=== PATIENT | female | born 1970 | race Two or more races ===

== ENCOUNTER → 2024-11-10 | Outpatient (CLI) | payer BC ==
--- NOTE | 2024-11-10 16:54 | US ---
EXAMINATION TYPE: US thyroid st tissue head/neck DATE OF EXAM: 11/10/2024 COMPARISON: US CLINICAL INDICATION: Female, 54 years old with history of R22.1 LOCALIZED SWELLING, MASS AND LUMP, NE CK; Pt states abnormal xray at outside facility TECHNIQUE: Grayscale and color Doppler imaging of the thyroid gland. FINDINGS: GLAND SIZE: Right Lobe: 6.6 x 2.6 x 2.4 cm Overall Parenchyma: heterogeneous Left Lobe: 7.7 x 2.6 x 2.6 cm Overall Parenchyma: heterogeneous Isthmus Thickness: 0.2 cm NODULES RIGHT: # of nodules measured on right: 1 1. 4.1 X 2.1 x 2.3 cm, lower, solid or almost completely solid, isoechoic nodule, which is wider th an tall, with ill-defined margins, without echogenic foci. TR3 Prior size: No prior Multiple sub-centimeter nodules scattered throughout LEFT: # of nodules measured on left: 2 1. 4.5 X 2.9 x 4.5 cm, lower, solid or almost completely solid, isoechoic nodule, which is wider th an tall, with ill-defined margins, without echogenic foci. Difficult to visualize- extending past c lavicle. TR3 Prior size: No prior 2. 2.9 X 1.6 x 2.6 cm, mid, solid or almost completely solid, isoechoic nodule, which is wider raoul n tall, with smooth margins, without echogenic foci. TR3 Prior size: No prior ISTHMUS: # of nodules measured in the isthmus: 1 1. 1.2 X 1.0 x 0.9 cm solid or almost completely solid, hypoechoic nodule, which is wider than tall , with smooth margins, without echogenic foci. TR3 Prior size: No prior Bilateral neck scanned, no evidence of lymphadenopathy. Bilateral thyroid enlarged, lower pole extending past clavicle making it difficult to visualize. Multiple nodules bilaterally with largest measured above. IMPRESSION: As above. Consider imaging guided sampling of the largest bilateral nodules to rule out malignancy. 2017 ACR TI-RADS LEVEL: TI-RADS 3 - Mildly Suspicious: Follow if > 1.5 cm, FNA if > 2.5 cm *Highest TI-RADS level nodule reported [email or web address] [facility], , 11/10/2024 4:52 PM
[2024-11-10 21:36] LABS: T4, Free (Free Thyroxine) 1.18 ng/dL (0.80-1.80)
== END | disposition home or self-care (01) ==
LOC: RADUSWWP 15:18
PROVIDERS: ATTEND Otolaryngology
DX: E04.2 Nontoxic multinodular goiter (principal)
CPT/HCPCS: 76536; 83516; 84439; 84443; 84481; 86800

== ENCOUNTER 2024-11-24 08:21 | Day surgery (SDC) | payer BC ==
[2024-11-24 08:50] VITALS: RESP 16; TEMP 98.7
[2024-11-24] MEDS: ALPRAZolam 0.5 MG TAB PO STA (08:55)
[2024-11-24 10:24] VITALS: BP 125/75; PULSE 68
--- NOTE | 2024-11-24 10:26 | US ---
EXAMINATION TYPE: US FNA thyroid each add lesion DATE OF EXAM: 11/24/2024 10:06 AM COMPARISON: 11/10/2024 CLINICAL INDICATION: Female, 54 years old with history of E04.2; , thyroid nodule TECHNIQUE/FINDINGS: The procedure was explained to the patient. The risks, complications, benefits and alternatives were discussed and any questions were answered. Informed consent was obtained. Patient was placed supin e on the ultrasound table and prepped and draped in the usual sterile fashion. Utilizing a 25 gauge needle, five passes were made into the 4.1 cm right thyroid nodule, 4.5 cm left thyroid nodule, 2.9 c m left thyroid nodule, and 1.2 cm isthmus nodule.. Patient was stable throughout the procedure. Pathology is pending. All elements of maximal barrier technique were utilized. IMPRESSION: 1. Successful ultrasound guided FNA thyroid biopsy. [facility], , 11/24/2024 10:24 AM
== END 2024-11-24 10:20 | disposition home or self-care (01) ==
LOC: RADPROMAIN 08:21
PROVIDERS: ATTEND Otolaryngology
DX: E04.2 Nontoxic multinodular goiter (principal)
CPT/HCPCS: 10005; 10006; 88173; 88305